=== PATIENT | male | born 1970 | race Caucasian/White ===

== ENCOUNTER 2024-12-09 22:53 | Inpatient (IN) | payer BC, SELFPAY ==
[2024-12-09 23:23] VITALS: BMI 29.9
[2024-12-10] VITALS (7 sets, daily range): BP systolic 102–161; BP diastolic 53–92; PULSE 97–108; RESP 14–99; TEMP 36–36.9; O2SAT 93–99
[2024-12-10] MEDS: SODIUM CHLORIDE 0.9% 1,000 ML 100 ML IV ×3 (00:45→21:44)
--- NOTE | 2024-12-10 01:30 | PC.ADMIT ---
[address] Admission Note: Admitted to AC unit at 00:15. Direct transfer from [facility] Saturday. Alert and oriented x 4, ambulates independently. Reports pain 3/10. Oriented to room and call light. Call light within reach. The patient,Umang Victor,54 y/o, was given written information regarding hospital policies, unit procedures and contact persons. Patient's smoking status: Never smoker. Vital Signs - 8 hr 12/10/24 00:30 Temperature 98.5 F Pulse Rate 106 H Respiratory Rate 18 Blood Pressure 146/87 H Pulse Oximetry 96 Oxygen Flow Rate 0
[2024-12-10] MEDS: PIPERACILLIN/TAZO 3.375 GM in SODIUM CHLORIDE 0.9% 100 ML IV ×3 (02:07→18:19)
[2024-12-10] MEDS: HYDROMORPHONE 0.5 MG INJ IV ×2 (02:08→07:38)
[2024-12-10 05:06] LABS: Add Manual Diff / Slide Review NO; Basophils Absolute Auto 0 /uL (0-100); Basophils Percent Auto 0.1 % (0-2); Eosinophils Absolute Auto 0 /uL (0-450); Eosinophils Percent Auto 0.3 % (2-4); Hematocrit 40.3 % (41-53); Hemoglobin 13.8 g/dL (13.5-17.5); Lymphocytes Absolute Auto 700 /uL (1100-4500); Lymphocytes Percent Auto 6.3 % (25-40); Mean Corpuscular HGB Conc 34.1 % (30-36); Mean Corpuscular Volume 90.9 fL (80-100); Monocytes Absolute Auto 300 /uL (0-900); Monocytes Percent Auto 3.2 % (3-14); Neutrophils Absolute Auto 9400 /uL (1500-7000); Neutrophils Percent Auto 90.1 % (50-75); Platelet Count 182 X10^3/uL (150-400); Red Blood Cell Count 4.43 X10^6/uL (4.5-5.9); White Blood Cell Count 10.4 X10^3/uL (4.5-11.0)
[2024-12-10 05:21] LABS: BUN Creatinine Ratio 16.7 (6-22); Blood Urea Nitrogen 13 mg/dL (9-20); Calcium 8.4 mg/dL (8.4-10.2); Carbon Dioxide 23 mmol/L (22-32); Chloride 106 mmol/L (98-107); Estimated Glomerular Filt Rate > 60 mL/min (>60); Glucose 130 mg/dL (70-100); HEMOLYSIS 16 (0-50); Potassium 4.1 mmol/L (3.4-5.1); Sodium 137 mmol/L (137-145)
--- NOTE | 2024-12-10 05:22 | P.HP_ITS ---
History of Present Illness History of Present Illness Chief complaint: diverticulitis w/ microperforation Narrative: 54-year-old male with no reported past medical history presents with complaint of abdominal pain. Of note the patient started to have acute onset of mid abdominal pain that started today. The patient states that his pain was sharp, moderate to severe and radiated to the right lower quadrant. The patient initially presented to outside emergency room where he was evaluated. The patient did have some nausea but denies any vomiting, fever, chills, diarrhea, chest pain or shortness of breath. At outside emergency room, the patient did have leukocytosis of 14 with normal lactic acid. CT scan of the abdomen shows acute diverticulitis with microperforation. The patient always noted to have bilateral inguinal hernia in which the left inguinal hernia was reduced. There was no sign of strangulation per the ER physician. General surgeon Dr. Hunter was consulted and agreed to except the patient to a hospital for further management. The patient received IV fluid, IV pain medication as well as IV Zosyn. The patient remains hemodynamically stable without sepsis. [facility] Social History household members: spouse Smoking Status: Never smoker alcohol intake: current Meds Home Medications and Allergies Home Medications Medication Instructions Recorded Confirmed Type No Known Home Medications 12/10/24 12/10/24 History Allergies Allergy/AdvReac Type Severity Reaction Status Date / Time No Known Drug Allergies Allergy Verified 12/10/24 01:27 Review of Systems Review of Systems ROS: Yes All systems reviewed with the patient and are negative except as otherwise documented Exam Vital Signs (past 8 hours): - 12/10/24 00:30 12/10/24 04:00 Temperature 98.5 F 97.4 F L Pulse Rate 106 H 97 H Respiratory Rate 18 17 Blood Pressure 146/87 H 102/53 L Pulse Oximetry 96 97 Oxygen Flow Rate 0 0 Oxygen Flow Rate 0 Narrative Exam Narrative: Physical Exam: GENERAL: The patient is not in any acute distressed. Awake and alert. HEENT: Nonicteric sclerae, PERRLA, EOMI. Oropharynx clear. Moist mucous membranes. Conjunctivae appear well perfused. HEART: Regular rate and rhythm without murmurs. No lower extremities edema. LUNGS: Clear to auscultation bilaterally. No wheezing, crackles or rhonchi ABDOMEN: Soft, positive bowel sounds, nontender. SKIN: No rash, no excessive bruising, petechiae, or purpura. NEUROLOGIC: AxO x 3. Cranial nerves II-XII intact without motor/sensory deficit. Objective Labs 12/10/24 04:16 12/10/24 04:16 Labs: Laboratory Results - last 24 hr 12/10/24 04:16 WBC 10.4 RBC 4.43 L Hgb 13.8 Hct 40.3 L MCV 90.9 MCH 31.0 MCHC 34.1 RDW 14.0 Plt Count 182 Neut % (Auto) 90.1 H Lymph % (Auto) 6.3 L [place] % (Auto) 3.2 Eos % (Auto) 0.3 L Baso % (Auto) 0.1 Neut # (Auto) 9400 H Lymph # (Auto) 700 L [place] # (Auto) 300 Eos # (Auto) 0 Baso # (Auto) 0 Assessment & Plan Assessment & Plan narrative: Acute diverticulitis with microperforation. Admit the patient to medical telemetry as inpatient. NPO. IV fluid. Pain control. Continue IV Zosyn. At this time patient is not septic and hemodynamically stable. Dr. Browne from general surgery consulted and appreciate further input and management. Will continue serial abdominal exam per general surgery recommendation. Leukocytosis. Likely from above. No sign of sepsis otherwise with normal lactic acid. Monitor for now. Dehydration. IV fluid. DVT prophylaxis SCDs. CODE STATUS full code. Disposition likely home in 2 days Time-Based Coding :: [TOTAL MINUTES] spent with patient and on the chart (including review of chart, obtaining history, exam, reviewing outside data, placing orders, documenting exam and treatment plan, and counseling patient) on [DATE].
[2024-12-10] MEDS: HYDROCODONE/ACET 5/325 TABLET 1 TAB PO ×3 (07:56→21:44)
[2024-12-10] MEDS: HYDROMORPHONE 1 MG INJ IV ×4 (09:08→18:37)
--- NOTE | 2024-12-10 12:32 | PC.NURSE ---
Patient's Primary Care Physician Geetha Encinas's fax # [phone]
--- NOTE | 2024-12-10 12:32 | CM.DANOTE ---
Initial DCP Assessment Note Pt is a 54 yo male, resident of [place], presents with complaint of abdominal pain. Admitted for further management and consult from general surgery for Acute diverticulitis with microperforation PCP: Dr Encinas Payer: [place] Reviewed chart, pt discussed in multidisciplinary rounds this morning. Patient complaining of persistent, severe pain. Surgery consulted, waiting on recommendations. Patient lives independently w/sp in [place]. Anticipate return home when medically cleared to do so. No barriers identified at this time to patient's safe discharge home w/family to assist; close outpatient f/u recommended. CM team will plan to follow clinical course closely in case any DC needs or concerns arise. HARRIS Charles Discharge Planning/Care Management CM Discharge Assessment Start: 12/10/24 12:30 Freq: Status: Active Protocol: Document 12/10/24 12:30 DUC (Rec: 12/10/24 12:32 DUC [id number]) Discharge Planning Assessment Assigned Prevention Specialist HARRIS Manzano DPOA/Assigned Designee Name Ashley Victor, spouse Contact Information [phone] Advance Directives? No History Provided By Patient,Medical Record Prior Living Arrangements House Household Members spouse Type of transporation used prior to Drives own vehicle admit Independent with ADL's Yes Is patient alert and oriented? Yes Barriers to Discharge No Discharge Plan Home Transportation Arrangement Family Referrals Initiated None needed
--- NOTE | 2024-12-10 15:28 | P.PN_ITS ---
Subjective Subjective Interval history: 54 year old male admitted with perforated diverticulitis from outside ER (Saturday). Dilaudid increased today. WBC improved on labs from outside ER. Surgery recommends NPO today, and continued antibiotics, no surgery recommended at this time. Exam Vital Signs (past 8 hours): - 12/10/24 08:00 12/10/24 12:00 Temperature 97.5 F L 97.1 F L Pulse Rate 108 H 101 H Respiratory Rate 14 16 Blood Pressure 144/89 H 140/92 H Pulse Oximetry 98 95 Oxygen Flow Rate 0 0 Oxygen Flow Rate 0 Narrative Exam Narrative: Physical Exam: GENERAL: The patient is not in any acute distressed. Awake and alert. HEENT: Nonicteric sclerae, PERRLA, EOMI. Oropharynx clear. Moist mucous membranes. Conjunctivae appear well perfused. HEART: Regular rate and rhythm without murmurs. No lower extremities edema. LUNGS: Clear to auscultation bilaterally. No wheezing, crackles or rhonchi ABDOMEN: soft, non-distended, mild tenderness in the suprapubic region primarily SKIN: No rash, no excessive bruising, petechiae, or purpura. NEUROLOGIC: AxO x 3. Cranial nerves II-XII intact without motor/sensory deficit. Objective Labs 12/10/24 04:16 12/10/24 04:16 Labs: Laboratory Results - last 24 hr 12/10/24 04:16 WBC 10.4 RBC 4.43 L Hgb 13.8 Hct 40.3 L MCV 90.9 MCH 31.0 MCHC 34.1 RDW 14.0 Plt Count 182 Neut % (Auto) 90.1 H Lymph % (Auto) 6.3 L [place] % (Auto) 3.2 Eos % (Auto) 0.3 L Baso % (Auto) 0.1 Neut # (Auto) 9400 H Lymph # (Auto) 700 L [place] # (Auto) 300 Eos # (Auto) 0 Baso # (Auto) 0 Sodium 137 Potassium 4.1 Chloride 106 Carbon Dioxide 23 BUN 13 Creatinine 0.78 Estimated GFR > 60 BUN/Creatinine Ratio 16.7 Glucose 130 H Calcium 8.4 PFSH Social History household members: spouse Smoking Status: Never smoker alcohol intake: current Assessment & Plan Assessment & Plan narrative: Acute diverticulitis with perforation - SOFA score <0, currently without evidence of sepsis - continue NPO, IV fluids, and zosyn for antitbiotics. Improving pain but with increased dilaudid dosing this morning. Continue to monitor abdominal pain. - outside records reviewed. WBC has improved from 14.8 at OSH to 10.4 today. - Cr 1.04 at OSH now improved to 0.78. - Discussed with surgeon senior coldfusion developer, recommends NPO status, antibiotics. Can start CLD tomorrow if pain improving. No surgery recommended at this time. Surgery following. - patient with history of diverticulitis over many years, has a brother who is s/p colon resection for diverticulitis. DVT prophylaxis SCDs given possibility of abdominal surgery CODE STATUS full code. Disposition: inpatient, likely home, unclear timing will depend on symptoms but likely 2-3 days suspected I have utilized all available immediate resources to obtain, update, or review the patient's current medications. Additional history obtained via discussions with the overnight provider and surgeon today. These discussions contributed to the creation of the above assessment and plan. I have reviewed patient's presenting documentation, labs, and imaging personally. Time-Based Coding :: [TOTAL MINUTES] spent with patient and on the chart (including review of chart, obtaining history, exam, reviewing outside data, placing orders, documenting exam and treatment plan, and counseling patient) on [DATE].
[2024-12-10] MEDS: ONDANSETRON 4 MG/2 ML INJ IV (18:37)
--- NOTE | 2024-12-10 21:53 | PM.CN.IH.1 ---
History of Present Illness Consult details Date Patient Seen: 12/10/24 Chief complaint: diverticulitis w/ microperforation Reason for consult: Perforated sigmoid diverticulitis Narrative: This is a 54-year-old gentleman with no significant past medical history who presented to the hospital after being seen at an outside facility with acute onset of abdominal pain. Patient says that the pain began earlier this week and progressively worsened. Denies having pain similar to this but states that he has had GI issues over many years. Patient states that he is up-to-date with his FIT test screening for colonoscopy. States that these have been negative in the past. Denies any family history of colon cancer/Crohn's disease. Patient states that the pain became 10/10 in nature, constant, radiating across the lower abdomen which caused him to present to the emergency department. He underwent full set of labs and CT abdomen and pelvis. At the outside facility the impression of the CT abdomen and pelvis demonstrated a likely microperforation of the sigmoid colon consistent with diverticulitis. Of note there was small amount of pneumoperitoneum under the diaphragm. Patient states that since he has been admitted and started on antibiotics his pain has significantly improved. Continues to complain of abdominal distention. Last bowel movement was yesterday. Denies any abdominal surgeries in the past. Meds Home Medications and Allergies Home Medications Medication Instructions Recorded Confirmed Type No Known Home Medications 12/10/24 12/10/24 History Allergies Allergy/AdvReac Type Severity Reaction Status Date / Time No Known Drug Allergies Allergy Verified 12/10/24 01:27 Review of Systems Review of Systems ROS: Yes All systems reviewed with the patient and are negative except as otherwise documented Exam Vital Signs (past 8 hours): - 12/10/24 16:00 12/10/24 19:59 Temperature 98.3 F 97.5 F L Pulse Rate 105 H 105 H Respiratory Rate 14 15 Blood Pressure 137/88 135/90 Pulse Oximetry 93 94 Oxygen Flow Rate 0 Oxygen Flow Rate 0 Const General: cooperative, healthy appearing, comfortable, well developed and No ill appearing Nutritional Appearance: average body habitus Orientation: alert, awake and oriented x3 HENMT Head: normal to inspection and normocephalic Ears: hearing grossly normal bilaterally Nose: external nose normal Eyes General: appearance normal, both eyes and all related structures Neck Neck: normal visual inspection Resp Effort & Inspection: normal respiratory effort, able to speak in complete sentences, no audible wheezes, no cough and no respiratory distress Cardio Rhythm: regular rhythm GI Inspection: normal to inspection and distended Palpation: soft, No firm, No guarding, No hernia and tender Percussion: normal to percussion Skin General: no rashes or lesions noted Neuro General: patient alert, patient awake and patient oriented x3 Extrem General: normal to inspection and full ROM Psych Appearance: grossly normal and well kempt Mental Status: mental status grossly normal Objective Labs 12/10/24 04:16 12/10/24 04:16 Labs: Laboratory Results - last 24 hr 12/10/24 04:16 WBC 10.4 RBC 4.43 L Hgb 13.8 Hct 40.3 L MCV 90.9 MCH 31.0 MCHC 34.1 RDW 14.0 Plt Count 182 Neut % (Auto) 90.1 H Lymph % (Auto) 6.3 L [place] % (Auto) 3.2 Eos % (Auto) 0.3 L Baso % (Auto) 0.1 Neut # (Auto) 9400 H Lymph # (Auto) 700 L [place] # (Auto) 300 Eos # (Auto) 0 Baso # (Auto) 0 Sodium 137 Potassium 4.1 Chloride 106 Carbon Dioxide 23 BUN 13 Creatinine 0.78 Estimated GFR > 60 BUN/Creatinine Ratio 16.7 Glucose 130 H Calcium 8.4 PFSH Social History household members: spouse Tobacco & Substance Use Smoking Status: Never smoker alcohol intake: current Assessment & Plan Assessment and plan (1) Perforation of sigmoid colon due to diverticulitis: Status: Acute Assessment & Plan narrative: This is a 54-year-old gentleman who presents to the hospital with acute sigmoid perforated diverticulitis. Patient has had significant improvements with treatment conservatively with IV antibiotics and bowel rest. Upon my exam today, patient's pain is minimal and does not demonstrate any evidence of peritonitis. -NPO with IV fluids and bowel rest. Plan to advance to clear liquid diet in the a.m.. We will continue to monitor closely for worsening of abdominal pain. -multimodal pain control -continue IV Zosyn -daily CBC -continue inpatient care. Once patient is able to tolerate regular diet and pain is minimal/resolve we will plan to discharge. We will expect the patient to remain in the hospital for an additional 3 days. Plan to repeat CT abdomen and pelvis prior to discharge. Time-Based Coding :: 45 spent with patient and on the chart (including review of chart, obtaining history, exam, reviewing outside data, placing orders, documenting exam and treatment plan, and counseling patient) on December 10, 2024 PROFEE Charge Codes Inpatient or Observation consultation: [id number]
[2024-12-11] MEDS: HYDROMORPHONE 1 MG INJ IV ×2 (00:17→14:14)
[2024-12-11] MEDS: SODIUM CHLORIDE 0.9% FLUSH 10 ML IV (00:18)
[2024-12-11] MEDS: PIPERACILLIN/TAZO 3.375 GM in SODIUM CHLORIDE 0.9% 100 ML IV ×3 (02:44→17:00)
[2024-12-11] MEDS: HYDROCODONE/ACET 5/325 TABLET 1 TAB PO ×2 (06:00→16:51)
[2024-12-11] MEDS: ACETAMINOPHEN 325 MG TABLET 650 MG PO (06:00)
[2024-12-11 06:40] VITALS: BP 157/92; PULSE 102; RESP 12; TEMP 36.2; O2SAT 99
[2024-12-11 06:48] LABS: BUN Creatinine Ratio 9.2 (6-22); Blood Urea Nitrogen 7 mg/dL (9-20); Calcium 8.6 mg/dL (8.4-10.2); Carbon Dioxide 24 mmol/L (22-32); Chloride 105 mmol/L (98-107); Estimated Glomerular Filt Rate > 60 mL/min (>60); Glucose 112 mg/dL (70-100); HEMOLYSIS < 15 (0-50); Potassium 4.1 mmol/L (3.4-5.1); Sodium 139 mmol/L (137-145)
[2024-12-11 06:58] LABS: Add Manual Diff / Slide Review NO; Basophils Absolute Auto 0 /uL (0-100); Basophils Percent Auto 0.1 % (0-2); Eosinophils Absolute Auto 100 /uL (0-450); Eosinophils Percent Auto 0.6 % (2-4); Hematocrit 40.8 % (41-53); Hemoglobin 13.8 g/dL (13.5-17.5); Lymphocytes Absolute Auto 900 /uL (1100-4500); Lymphocytes Percent Auto 7.7 % (25-40); Mean Corpuscular HGB Conc 33.8 % (30-36); Mean Corpuscular Volume 91.7 fL (80-100); Monocytes Absolute Auto 700 /uL (0-900); Monocytes Percent Auto 5.8 % (3-14); Neutrophils Absolute Auto 9700 /uL (1500-7000); Neutrophils Percent Auto 85.8 % (50-75); Platelet Count 167 X10^3/uL (150-400); Red Blood Cell Count 4.45 X10^6/uL (4.5-5.9); Red Cell Distribution Width 13.7 % (11.6-14.8); White Blood Cell Count 11.3 X10^3/uL (4.5-11.0)
[2024-12-11] MEDS: SODIUM CHLORIDE 0.9% 1,000 ML 100 ML IV ×2 (07:36→17:02)
[2024-12-11 10:00] VITALS: BP 140/88; PULSE 96; RESP 16; TEMP 36.4; O2SAT 98
--- NOTE | 2024-12-11 12:05 | CM.DPNOTE ---
No ED EMAIL MARKETING EXECUTIVE available
--- NOTE | 2024-12-11 12:05 | CM.DPNOTE ---
DCP Continued: Reviewed EMR and team rounds for pt?s medical status. Per hospitalist, plan is for patient to advance diet and see how it is tolerated. No discharge needs identified at this time. Plan: Anticipating dc home when medically stable within 1 or 2 days, per hospitalist. CM Team will continue to follow for coordination of discharge plans. KARISHMA Sethi
[2024-12-11] MEDS: SIMETHICONE 80 MG TABLET PO ×2 (12:57→21:14)
[2024-12-11 14:00] VITALS: BP 155/99; PULSE 105; RESP 16; TEMP 36.7; O2SAT 97
--- NOTE | 2024-12-11 15:09 | P.PN_ITS ---
Subjective Subjective Interval history: 54 year old male admitted with perforated diverticulitis from outside ER (Saturday). Pain improving, but still some epigastric fullness and distension. Tolerating clears. Exam Vital Signs (past 8 hours): - 12/11/24 10:00 12/11/24 14:00 Temperature 97.5 F L 98.1 F Pulse Rate 96 H 105 H Respiratory Rate 16 16 Blood Pressure 140/88 155/99 H Pulse Oximetry 98 97 Oxygen Flow Rate 0 0 Oxygen Delivery Method Nasal Cannula Oxygen Flow Rate 0 Narrative Exam Narrative: Physical Exam: GENERAL: The patient is not in any acute distressed. Awake and alert. HEENT: Nonicteric sclerae, PERRLA, EOMI. Oropharynx clear. Moist mucous membranes. Conjunctivae appear well perfused. HEART: Regular rate and rhythm without murmurs. No lower extremities edema. LUNGS: Clear to auscultation bilaterally. No wheezing, crackles or rhonchi ABDOMEN: soft, non-distended, tenderness now much improved, perhaps slight tenderness in the epiagstrium / LUQ SKIN: No rash, no excessive bruising, petechiae, or purpura. NEUROLOGIC: AxO x 3. Cranial nerves II-XII intact without motor/sensory deficit. Objective Labs 12/11/24 05:46 12/11/24 05:46 Labs: Laboratory Results - last 24 hr 12/11/24 05:46 WBC 11.3 H RBC 4.45 L Hgb 13.8 Hct 40.8 L MCV 91.7 MCH 31.0 MCHC 33.8 RDW 13.7 Plt Count 167 Neut % (Auto) 85.8 H Lymph % (Auto) 7.7 L [place] % (Auto) 5.8 Eos % (Auto) 0.6 L Baso % (Auto) 0.1 Neut # (Auto) 9700 H Lymph # (Auto) 900 L [place] # (Auto) 700 Eos # (Auto) 100 Baso # (Auto) 0 Sodium 139 Potassium 4.1 Chloride 105 Carbon Dioxide 24 BUN 7 L Creatinine 0.76 Estimated GFR > 60 BUN/Creatinine Ratio 9.2 Glucose 112 H Calcium 8.6 Magnesium 2.0 PFSH Social History household members: spouse Smoking Status: Never smoker alcohol intake: current Assessment & Plan Assessment & Plan narrative: Acute diverticulitis with perforation - SOFA score <0, currently without evidence of sepsis - continue diet per surgery, IV fluids, and zosyn for antitbiotics. Improving pain today and tolerating clears. Continue to monitor abdominal pain. - outside records reviewed. WBC has improved from 14.8 at OSH to 10.4. Slightly up at 11.3 this morning but will continue to follow. Surgeon does recommend repeat CT prior to discharge, will see clinically how he does as to optimal timing for this. - Cr 1.04 at OSH now improved to 0.76. - Appeciate surgical consultation. Continuing to follow and advancing diet per their recommendations - patient with history of diverticulitis over many years, has a brother who is s/p colon resection for diverticulitis. DVT prophylaxis SCDs given possibility of abdominal surgery CODE STATUS full code. Disposition: inpatient, likely home, unclear timing will depend on symptoms but likely 2-3 days suspected I have utilized all available immediate resources to obtain, update, or review the patient's current medications. Additional history obtained via discussions with the overnight provider and surgeon today. These discussions contributed to the creation of the above assessment and plan. I have reviewed patient's presenting documentation, labs, and imaging personally. Time-Based Coding :: [TOTAL MINUTES] spent with patient and on the chart (including review of chart, obtaining history, exam, reviewing outside data, placing orders, documenting exam and treatment plan, and counseling patient) on [DATE].
[2024-12-11] MEDS: ONDANSETRON 4 MG/2 ML INJ IV (16:57)
[2024-12-11 18:00] VITALS: BP 149/90; PULSE 93; RESP 14; TEMP 36.6; O2SAT 99
[2024-12-11 21:00] VITALS: BP 139/83; PULSE 90; RESP 18; TEMP 36.3; O2SAT 99
[2024-12-12] MEDS: PIPERACILLIN/TAZO 3.375 GM in SODIUM CHLORIDE 0.9% 100 ML IV ×3 (01:48→17:59)
[2024-12-12 02:13] VITALS: BP 139/80; PULSE 80; RESP 18; TEMP 36.3; O2SAT 100
[2024-12-12] MEDS: SODIUM CHLORIDE 0.9% 1,000 ML 100 ML IV (02:21)
--- NOTE | 2024-12-12 03:42 | P.PN_ITS ---
Subjective Subjective Date Patient Seen: 12/11/24 Time Patient Seen: 09:15 Exam Vital Signs (past 8 hours): - 12/11/24 21:00 12/12/24 02:13 Temperature 97.3 F L 97.4 F L Pulse Rate 90 80 Respiratory Rate 18 18 Blood Pressure 139/83 139/80 Pulse Oximetry 99 100 Oxygen Flow Rate 0 0 Oxygen Delivery Method Nasal Cannula Oxygen Flow Rate 0 Const General: cooperative, healthy appearing and comfortable Nutritional Appearance: well nourished [facility] Head: normal to inspection, normocephalic and atraumatic Ears: hearing grossly normal bilaterally Eyes General: appearance normal, both eyes and all related structures Neck Neck: normal visual inspection Resp Effort & Inspection: normal respiratory effort and able to speak in complete sentences GI Inspection: normal to inspection and distended (slightly) Palpation: soft and No tender Percussion: tympanic to percussion Skin General: no rashes or lesions noted Neuro General: patient alert, patient awake and patient oriented x3 Extrem General: normal to inspection Psych Appearance: grossly normal and well kempt Mental Status: mental status grossly normal Speech and Movement: speech and movement normal Objective Labs 12/11/24 05:46 12/11/24 05:46 Labs: Laboratory Results - last 24 hr 12/11/24 05:46 WBC 11.3 H RBC 4.45 L Hgb 13.8 Hct 40.8 L MCV 91.7 MCH 31.0 MCHC 33.8 RDW 13.7 Plt Count 167 Neut % (Auto) 85.8 H Lymph % (Auto) 7.7 L [place] % (Auto) 5.8 Eos % (Auto) 0.6 L Baso % (Auto) 0.1 Neut # (Auto) 9700 H Lymph # (Auto) 900 L [place] # (Auto) 700 Eos # (Auto) 100 Baso # (Auto) 0 Sodium 139 Potassium 4.1 Chloride 105 Carbon Dioxide 24 BUN 7 L Creatinine 0.76 Estimated GFR > 60 BUN/Creatinine Ratio 9.2 Glucose 112 H Calcium 8.6 Magnesium 2.0 PFSH Social History household members: spouse Smoking Status: Never smoker alcohol intake: current Assessment & Plan Assessment and plan (1) Perforation of sigmoid colon due to diverticulitis: Status: Acute Assessment & Plan narrative: This is a 54 year old M who presents with acute sigmoid diverticulitis with contained perforation - Patient is overall doing well. Advanced to full liq this afternoon - Continue Zosyn. Leukocytosis slightly elevated today. Will plan to repeat CT abd/pelvis with IV and PO contrast prior to discharge to eval for sigmoid abscess. Patient is high risk for intra-abdominal abscess due to contained perforation - Multimodal pain control - Encourage patient to ambulate - Continue inpatient care. Will continue to follow along Time-Based Coding :: [TOTAL MINUTES] spent with patient and on the chart (including review of chart, obtaining history, exam, reviewing outside data, placing orders, documenting exam and treatment plan, and counseling patient) on [DATE]. PROFEE Electromechanical Assembler Document charge(s): Yes Charge Codes Subsequent inpatient/observation care: [id number]
[2024-12-12 04:58] LABS: Add Manual Diff / Slide Review NO; Basophils Absolute Auto 0 /uL (0-100); Basophils Percent Auto 0.2 % (0-2); Eosinophils Absolute Auto 300 /uL (0-450); Eosinophils Percent Auto 2.5 % (2-4); Hematocrit 38.3 % (41-53); Hemoglobin 13.1 g/dL (13.5-17.5); Lymphocytes Absolute Auto 1000 /uL (1100-4500); Mean Corpuscular HGB Conc 34.1 % (30-36); Mean Corpuscular Hemoglobin 31.1 PG (26-34); Mean Corpuscular Volume 91.1 fL (80-100); Monocytes Absolute Auto 600 /uL (0-900); Monocytes Percent Auto 6.1 % (3-14); Neutrophils Absolute Auto 8300 /uL (1500-7000); Neutrophils Percent Auto 81.2 % (50-75); Platelet Count 171 X10^3/uL (150-400); White Blood Cell Count 10.3 X10^3/uL (4.5-11.0)
[2024-12-12] MEDS: SIMETHICONE 80 MG TABLET PO (05:12)
[2024-12-12] MEDS: HYDROCODONE/ACET 5/325 TABLET 1 TAB PO ×3 (05:12→21:04)
[2024-12-12 05:14] LABS: Blood Urea Nitrogen 7 mg/dL (9-20); Calcium 8.7 mg/dL (8.4-10.2); Carbon Dioxide 25 mmol/L (22-32); Chloride 107 mmol/L (98-107); Estimated Glomerular Filt Rate > 60 mL/min (>60); Glucose 88 mg/dL (70-100); HEMOLYSIS < 15 (0-50); Magnesium 1.9 mg/dL (1.6-2.3); Potassium 4.1 mmol/L (3.4-5.1); Sodium 140 mmol/L (137-145)
--- NOTE | 2024-12-12 10:29 | DI.CT.S_ITS ---
PROCEDURE: CT ABDOMEN PELVIS W CON INDICATIONS: perf diverticulitis, r/o developing abscess TECHNIQUE: After the administration of intravenous contrast, axial sections acquired from the lung bases to the pubic symphysis. Coronal and sagittal reformats were performed. For radiation dose reduction, the following was used: automated exposure control, adjustment of mA and/or kV according to patient size. COMPARISON: Outside Facility, CT, CT CHEST ABD PEL W CON, 12/09/2024, 19:10. FINDINGS: Image quality: Diagnostic. Lower Chest: Small left pleural effusion associated atelectasis ABDOMEN: Liver: No solid mass. Gallbladder: No radiopaque gallstones or wall thickening. Biliary ducts: No biliary dilation. Pancreas: No ductal dilation. Spleen: Size is within normal limits. Adrenal Glands: No adrenal nodules. Kidneys and Ureters: No hydronephrosis. No solid mass. No complex renal cystic lesion which requires follow up. Stomach and Bowel: There is now a well-defined abscess in the left hemipelvis measuring 4.3 x 5.0 cm. Smaller abscess in the right hemipelvis measures 2.5 cm. Persistent perisigmoid inflammatory change with several foci of adjacent extraluminal air. No gross pneumoperitoneum. No obstruction. Peritoneum: No abnormal intraperitoneal fluid. No free air. Ventral Wall: No significant ventral hernia. Abdominal Nodes: No retroperitoneal or mesenteric adenopathy by size criteria. Vessels: Aorta and inferior vena cava are normal in size. PELVIS: Pelvic Organs: Unremarkable. Bladder: No bladder wall thickening, accounting for underdistention. Pelvic Nodes: No enlarged lymph nodes. Miscellaneous: No inguinal hernias are seen. Bones: No aggressive osseous abnormality. IMPRESSION: Multifocal pelvic abscess is larger on the left. Persistent sigmoid diverticulitis without obstruction. Small foci of extraluminal air without gross pneumoperitoneum. Approved by: Jett Randall M.D. on 12/12/2024 at 10:43
--- NOTE | 2024-12-12 11:10 | PC.NURSE ---
Addendum entered by Christina Braxton R.N. 12/12/24 16:27: 1647 Report given to oncoming RN. Addendum entered by Christina Braxton R.N. 12/12/24 16:20: 1611 natural resource officer, primary RN and MD Pena at the bedside updating patient on plan of care. Patient and verbalized understanding. Addendum entered by Christina Braxton R.N. 12/12/24 14:46: 1415 Call placed to MD Quinn. RN to place orders for Miralax 17 grams daily. Original Note: 0730 Report received from nightshift RN. Patient AAO x's 3. Able to LAW. IV noted right arm infusing IVF at this time. Call light within reach and bed in lowest position. [address] unit to [address] scan. 1100 Patient back on unit from CT scan.
[2024-12-12 14:29] VITALS: BP 142/63; PULSE 80; RESP 16; TEMP 36.1; O2SAT 99
--- NOTE | 2024-12-12 15:42 | PM.PN.1 ---
Subjective Subjective Interval history: 54 year old male admitted with perforated diverticulitis from outside ER (Saturday). Pain resolved, tolerating diet but repeat CT today shows 2 abscesses in the pelvis. Discussed with surgery, recommends transfer for IR. Exam Vital Signs (past 8 hours): - 12/12/24 14:29 Temperature 97.0 F L Pulse Rate 80 Respiratory Rate 16 Blood Pressure 142/63 H Pulse Oximetry 99 Oxygen Flow Rate 0 Oxygen Delivery Method Room Air Oxygen Flow Rate 0 Narrative Exam Narrative: Physical Exam: GENERAL: The patient is not in any acute distressed. Awake and alert. HEENT: Nonicteric sclerae, PERRLA, EOMI. Oropharynx clear. Moist mucous membranes. Conjunctivae appear well perfused. HEART: Regular rate and rhythm without murmurs. No lower extremities edema. LUNGS: Clear to auscultation bilaterally. No wheezing, crackles or rhonchi ABDOMEN: soft, non-distended, tenderness now much improved, perhaps slight tenderness in the epiagstrium / LUQ SKIN: No rash, no excessive bruising, petechiae, or purpura. NEUROLOGIC: AxO x 3. Cranial nerves II-XII intact without motor/sensory deficit. Objective Imaging CT scan - abdomen: Radiologist's impression: There is now a well-defined abscess in the left hemipelvis measuring 4.3 x 5.0 cm. Smaller abscess in the right hemipelvis measures 2.5 cm. Labs 12/12/24 04:30 12/12/24 04:30 Labs: Laboratory Results - last 24 hr 12/12/24 04:30 WBC 10.3 RBC 4.20 L Hgb 13.1 L Hct 38.3 L MCV 91.1 MCH 31.1 MCHC 34.1 RDW 14.0 Plt Count 171 Neut % (Auto) 81.2 H Lymph % (Auto) 10.0 L [place] % (Auto) 6.1 Eos % (Auto) 2.5 Baso % (Auto) 0.2 Neut # (Auto) 8300 H Lymph # (Auto) 1000 L [place] # (Auto) 600 Eos # (Auto) 300 Baso # (Auto) 0 Sodium 140 Potassium 4.1 Chloride 107 Carbon Dioxide 25 BUN 7 L Creatinine 0.78 Estimated GFR > 60 BUN/Creatinine Ratio 9.0 Glucose 88 Calcium 8.7 Magnesium 1.9 PFSH Social History household members: spouse Smoking Status: Never smoker alcohol intake: current Assessment & Plan Assessment & Plan narrative: Acute diverticulitis with perforation and abscess - SOFA score <0, currently without evidence of sepsis - continue diet per surgery, IV fluids, and zosyn for antitbiotics. Improving pain today and tolerating clears. Continue to monitor abdominal pain. - outside records reviewed. WBC has improved from 14.8 at OSH now between 10-11 the last few days. - Cr 1.04 at OSH now improved to 0.76. - Appeciate surgical consultation. Recommends transfer for IR drainage of new 4.3 x 5 cm abscess in the L hemipelvis, and R hemipelvic 2.5 cm 2nd collection. - patient with history of diverticulitis over many years, has a brother who is s/p colon resection for diverticulitis. DVT prophylaxis SCDs given possibility of abdominal surgery CODE STATUS full code. Disposition: inpatient, will attempt to transfer for IR. I have utilized all available immediate resources to obtain, update, or review the patient's current medications. Additional history obtained via discussions with the overnight provider and surgeon today. These discussions contributed to the creation of the above assessment and plan. I have reviewed patient's presenting documentation, labs, and imaging personally. Time-Based Coding :: [TOTAL MINUTES] spent with patient and on the chart (including review of chart, obtaining history, exam, reviewing outside data, placing orders, documenting exam and treatment plan, and counseling patient) on [DATE].
[2024-12-12] MEDS: polyethylene glycoL 3350 17 GM POWD.PACK PO (16:18)
--- NOTE | 2024-12-12 17:01 | PM.PN.IH.1 ---
Subjective Subjective Date Patient Seen: 12/12/24 Time Patient Seen: 11:45 Interval history: Patient overall feeling better today. Patient's abdominal pain has almost resolved. Denies any nausea, emesis but endorses ongoing abdominal distention. Patient is passing flatus and had some bowel activity since admission. Patient underwent CT abdomen and pelvis and was found to have a 4.5 x 5 cm multiloculated pelvic abscess. Radiology was consulted and stated that there was a small window in order to drain the abscess. Patient and state that they are confused about the patient's plan despite multiple conversations have been had with the patient and his today as well as his PCP. Exam Vital Signs (past 8 hours): - 12/12/24 14:29 Temperature 97.0 F L Pulse Rate 80 Respiratory Rate 16 Blood Pressure 142/63 H Pulse Oximetry 99 Oxygen Flow Rate 0 Oxygen Delivery Method Room Air Oxygen Flow Rate 0 Const General: cooperative, healthy appearing and well developed Nutritional Appearance: average body habitus and well nourished Orientation: alert, awake, oriented x3 and confused HENID Head: normal to inspection and normocephalic Ears: hearing grossly normal bilaterally Eyes General: appearance normal, both eyes and all related structures Neck Neck: normal visual inspection Chest Chest: normal inspection of the chest Resp Effort & Inspection: normal respiratory effort GI Inspection: normal to inspection and distended (Epigastric) Palpation: No tender (Nontender and improved since yesterday) Percussion: tympanic to percussion Back/Spine/Pelvis Back: normal to inspection Skin General: no rashes or lesions noted Neuro General: patient alert, patient awake and patient oriented x3 Cognition: abnormal cognition Speech: speech normal Gait: normal gait Extrem General: normal to inspection Psych Attitude: cooperative Objective Imaging CT scan - abdomen: My impression: CT scan has been reviewed. Patient has multiloculated pelvic abscess Radiologist's impression: [address] [address] [address] Scan Report Signed Patient: Umang Victor MR#: [id number] : 1970 Acct:[id number] Age/Sex: 54 / M Date of Service: 12/12/24 Loc: 225-1 Accession Number: [id number] Procedure: CT abdomen pelvis w con Ordering Provider: Gray Maldonado D.O. PROCEDURE: CT ABDOMEN PELVIS W CON INDICATIONS: perf diverticulitis, r/o developing abscess TECHNIQUE: After the administration of intravenous contrast, axial sections acquired from the lung bases to the pubic symphysis. Coronal and sagittal reformats were performed. For radiation dose reduction, the following was used: automated exposure control, adjustment of mA and/or kV according to patient size. COMPARISON: Outside Facility, CT, CT CHEST ABD PEL W CON, 12/09/2024, 19:10. FINDINGS: Image quality: Diagnostic. Lower Chest: Small left pleural effusion associated atelectasis ABDOMEN: Liver: No solid mass. Gallbladder: No radiopaque gallstones or wall thickening. Biliary ducts: No biliary dilation. Pancreas: No ductal dilation. Spleen: Size is within normal limits. Adrenal Glands: No adrenal nodules. Kidneys and Ureters: No hydronephrosis. No solid mass. No complex renal cystic lesion which requires follow up. Stomach and Bowel: There is now a well-defined abscess in the left hemipelvis measuring 4.3 x 5.0 cm. Smaller abscess in the right hemipelvis measures 2.5 cm. Persistent perisigmoid inflammatory change with several foci of adjacent extraluminal air. No gross pneumoperitoneum. No obstruction. Peritoneum: No abnormal intraperitoneal fluid. No free air. Ventral Wall: No significant ventral hernia. Abdominal Nodes: No retroperitoneal or mesenteric adenopathy by size criteria. Vessels: Aorta and inferior vena cava are normal in size. PELVIS: Pelvic Organs: Unremarkable. Bladder: No bladder wall thickening, accounting for underdistention. Pelvic Nodes: No enlarged lymph nodes. Miscellaneous: No inguinal hernias are seen. Bones: No aggressive osseous abnormality. IMPRESSION: Multifocal pelvic abscess is larger on the left. Persistent sigmoid diverticulitis without obstruction. Small foci of extraluminal air without gross pneumoperitoneum. Labs 12/12/24 04:30 12/12/24 04:30 Labs: Laboratory Results - last 24 hr 12/12/24 04:30 WBC 10.3 RBC 4.20 L Hgb 13.1 L Hct 38.3 L MCV 91.1 MCH 31.1 MCHC 34.1 RDW 14.0 Plt Count 171 Neut % (Auto) 81.2 H Lymph % (Auto) 10.0 L [place] % (Auto) 6.1 Eos % (Auto) 2.5 Baso % (Auto) 0.2 Neut # (Auto) 8300 H Lymph # (Auto) 1000 L [place] # (Auto) 600 Eos # (Auto) 300 Baso # (Auto) 0 Sodium 140 Potassium 4.1 Chloride 107 Carbon Dioxide 25 BUN 7 L Creatinine 0.78 Estimated GFR > 60 BUN/Creatinine Ratio 9.0 Glucose 88 Calcium 8.7 Magnesium 1.9 PFSH Social History household members: spouse Smoking Status: Never smoker alcohol intake: current Assessment & Plan Assessment and plan (1) Perforation of sigmoid colon due to diverticulitis: Status: Acute (2) Diverticular disease of intestine with perforation and abscess: Status: Acute Assessment & Plan narrative: This is a 54 year old M who presents with acute sigmoid diverticulitis with contained perforation. Today CT abdomen and pelvis demonstrated multiloculated pelvic abscess with limited windows for IR percutaneous drainage. Due to the concern/ability to drain the patient has multiloculated pelvic abscess. We will transfer to higher level care with IR capabilities that can drain the patient's multiloculated pelvic abscess. Multidisciplinary discussion was had with the patient's nurse Christina, charge nurse Skyla and the patient's PCP Dr. Encinas about the plan of action. Patient will either be transferred to a different hospital for IR capabilities versus stay at [facility] for repeat CT scan on Saturday and potential IR drainage at our facility. In the meantime, patient will remain here on IV antibiotics, regular diet and we will add MiraLax - Regular diet. We will add MiraLax - perforated diverticulitis with sigmoid abscess: Continue Zosyn. - Multimodal pain control - Encourage patient to ambulate - potential transfer to different facility with IR capabilities versus remaining inpatient here. Time-Based Coding :: [TOTAL MINUTES] spent with patient and on the chart (including review of chart, obtaining history, exam, reviewing outside data, placing orders, documenting exam and treatment plan, and counseling patient) on [DATE]. 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
[2024-12-12 18:13] VITALS: BP 140/85; PULSE 73; RESP 12; TEMP 36.3; O2SAT 99
[2024-12-12] MEDS: HYDROMORPHONE 1 MG INJ IV (19:40)
[2024-12-12 20:00] VITALS: BP 153/90; PULSE 71; RESP 18; TEMP 36.3; O2SAT 99
[2024-12-13] MEDS: PIPERACILLIN/TAZO 3.375 GM in SODIUM CHLORIDE 0.9% 100 ML IV ×2 (01:22→08:59)
[2024-12-13] MEDS: HYDROCODONE/ACET 5/325 TABLET 1 TAB PO (01:23)
[2024-12-13 01:32] VITALS: BP 145/100; PULSE 70; RESP 18; TEMP 36.1; O2SAT 100
[2024-12-13 08:07] LABS: Add Manual Diff / Slide Review NO; Basophils Absolute Auto 0 /uL (0-100); Basophils Percent Auto 0.3 % (0-2); Eosinophils Absolute Auto 400 /uL (0-450); Eosinophils Percent Auto 4.6 % (2-4); Hematocrit 37.9 % (41-53); Hemoglobin 12.9 g/dL (13.5-17.5); Lymphocytes Absolute Auto 1100 /uL (1100-4500); Mean Corpuscular Hemoglobin 30.9 PG (26-34); Mean Corpuscular Volume 90.9 fL (80-100); Monocytes Absolute Auto 700 /uL (0-900); Monocytes Percent Auto 7.5 % (3-14); Neutrophils Absolute Auto 7100 /uL (1500-7000); Neutrophils Percent Auto 75.6 % (50-75); Platelet Count 211 X10^3/uL (150-400); Red Blood Cell Count 4.17 X10^6/uL (4.5-5.9); Red Cell Distribution Width 13.9 % (11.6-14.8); White Blood Cell Count 9.4 X10^3/uL (4.5-11.0)
[2024-12-13 08:14] LABS: BUN Creatinine Ratio 9.2 (6-22); Blood Urea Nitrogen 7 mg/dL (9-20); Calcium 8.5 mg/dL (8.4-10.2); Carbon Dioxide 24 mmol/L (22-32); Chloride 106 mmol/L (98-107); Estimated Glomerular Filt Rate > 60 mL/min (>60); Glucose 81 mg/dL (70-100); HEMOLYSIS < 15 (0-50); Magnesium 1.8 mg/dL (1.6-2.3); Potassium 3.6 mmol/L (3.4-5.1); Sodium 139 mmol/L (137-145)
[2024-12-13 08:30] VITALS: BP 150/92; PULSE 75; RESP 18; TEMP 36.1; O2SAT 100
--- NOTE | 2024-12-13 08:32 | PM.DS.1 ---
History of Present Illness History of Present Illness Date Patient Seen: 12/13/24 Time Patient Seen: 08:32 Chief complaint: diverticulitis w/ microperforation Narrative: Per admitting provider, 54-year-old male with no reported past medical history presents with complaint of abdominal pain. Of note the patient started to have acute onset of mid abdominal pain that started today. The patient states that his pain was sharp, moderate to severe and radiated to the right lower quadrant. The patient initially presented to outside emergency room where he was evaluated. The patient did have some nausea but denies any vomiting, fever, chills, diarrhea, chest pain or shortness of breath. At outside emergency room, the patient did have leukocytosis of [address] normal lactic acid. CT scan of the abdomen shows acute diverticulitis with microperforation. The patient always noted to have bilateral inguinal hernia in which the left inguinal hernia was reduced. There was no sign of strangulation per the ER physician. General surgeon Dr. Hunter was consulted and agreed to except the patient to a hospital for further management. The patient received IV fluid, IV pain medication as well as IV Zosyn. The patient remains hemodynamically stable without sepsis. Discharge Providers Provider Date of admission: 12/09/24 22:53 Discharge Date: 12/13/24 Discharge provider: Gray Maldonado DO Summary Hospital Course Discharge Diagnosis: Acute diverticulitis with perforation and abscess Hospital Course: This is a 54-year-old male with a past medical history of diverticulitis who was transferred from [place] room after a CT scan showed perforated diverticulitis on 12/09. He was transferred and admitted in the marksmanship instructor of 12/[address] [facility]. Clinically he improved with improving white blood cell count and improved pain with antibiotic therapies. He was tolerating a full liquid diet. General surgery recommended a follow-up CT scan on 12/12 which showed two new abscesses a 4.5x5 cm collection in the L hemipelvis and a 2.5 cm collection in the R hemipelvis. Surgery recommended transfer to a center with IR capability. Patient was accepted to [facility] for additional management with Dr. Couch the accepting physician/hospitalist. Time Spent with Patient Time spent: Greater than 30 minutes Exam Vital Signs (past 8 hours): - 12/13/24 01:32 12/13/24 08:30 Temperature 97 F L 96.9 F L Pulse Rate 70 75 Respiratory Rate 18 18 Blood Pressure 145/100 H 150/92 H Pulse Oximetry 100 100 Oxygen Flow Rate 0 0 Oxygen Delivery Method Room Air Oxygen Flow Rate 0 Narrative Exam Narrative: Physical Exam: GENERAL: The patient is not in any acute distressed. Awake and alert. HEENT: Nonicteric sclerae, PERRLA, EOMI. Oropharynx clear. Moist mucous membranes. Conjunctivae appear well perfused. HEART: Regular rate and rhythm without murmurs. No lower extremities edema. LUNGS: Clear to auscultation bilaterally. No wheezing, crackles or rhonchi ABDOMEN: soft, non-distended, non-tender SKIN: No rash, no excessive bruising, petechiae, or purpura. NEUROLOGIC: AxO x 3. Cranial nerves II-XII intact without motor/sensory deficit. Objective Labs 12/13/24 07:53 12/13/24 07:53 Labs: Laboratory Results - last 24 hr 12/13/24 07:53 WBC 9.4 RBC 4.17 L Hgb 12.9 L Hct 37.9 L MCV 90.9 MCH 30.9 MCHC 34.0 RDW 13.9 Plt Count 211 Neut % (Auto) 75.6 H Lymph % (Auto) 12.0 L [place] % (Auto) 7.5 Eos % (Auto) 4.6 H Baso % (Auto) 0.3 Neut # (Auto) 7100 H Lymph # (Auto) 1100 [place] # (Auto) 700 Eos # (Auto) 400 Baso # (Auto) 0 Sodium 139 Potassium 3.6 Chloride 106 Carbon Dioxide 24 BUN 7 L Creatinine 0.76 Estimated GFR > 60 BUN/Creatinine Ratio 9.2 Glucose 81 Calcium 8.5 Magnesium 1.8 PFSH Social History household members: spouse Smoking Status: Never smoker alcohol intake: current Discharge Plan Discharge Plan Patient Disposition: [facility] Provider Discharge Comment: Transfer to [facility] for interventional radiology drainage of diverticular abscess Discharge Health Status Multidrug resistant organism: No MDRO Precautions: [place] Diet/Activity/Treatments Diet: Diet as Tolerated and Full Liquid Liquid consistency: Normal/Thin Food texture: Regular Activity: No restrictions
[2024-12-13] MEDS: polyethylene glycoL 3350 17 GM POWD.PACK PO (08:59)
--- NOTE | 2024-12-13 10:09 | PC.NURSE ---
shift note: Pt up and showered, finished breakfast and notified that transport will be here shortly. Report called to hospital RN. - 1323- Pt left per ambulance- all belongings sent with patient
--- NOTE | 2024-12-13 10:21 | CM.DPNOTE ---
DCP note LAY OUT HELPER reviewed EMR Per provider, pt to transfer to [facility] for IR. pt left at about 10am today HARRIS Le
== END 2024-12-13 10:09 | disposition short-term general hospital (02) | DRG 391 ==
PROVIDERS: Internal Medicine; Admitting Provider Internal Medicine; Referring Provider Emergency Medicine; Visit Provider Internal Medicine
DX: K57.20 Diverticulitis of large intestine with perforation and abscess without bleeding (principal); K65.1 Peritoneal abscess; E86.0 Dehydration
CPT/HCPCS: 36415; 74177; 80048; 82962; 83735; 85025; J1171; J2405; J2543; Q9967